=== PATIENT | female | born 1960 | race American Indian/Alaskan Native ===

== ENCOUNTER 2021-07-19 11:26 | Emergency (ER) | payer MEDICAID ==
[2021-07-19 14:07] LABS: Alanine Aminotransferase 10 units/L (7-56); Albumin 3.3 g/dL (3.9-5); Blood Urea Nitrogen 12 mg/dL (7-17); Calcium 9.8 mg/dL (8.4-10.2); Hemolysis Index 83
[2021-07-19 14:16] LABS: BUN/Creatinine Ratio 20
--- NOTE | 2021-07-19 14:53 | Emergency Department Report ---
ED Psych HPI - General Chief Complaint: Psych Stated Complaint: SI/SA Time Seen by Provider: 07/19/21 12:19 Source: patient, family, EMS Mode of arrival: Stretcher Limitations: No Limitations - History of Present Illness Initial Comments: took 5 trazadone pills many hours ago she was planning to harm herself , history of the same , still depressed admit o being suicidal MD Complaint: suicidal ideation -: Gradual, hour(s) Associated Psychiatric Symptoms: depression, suicidal ideation Quality: constant Improves With: none Worsens With: none If Self Harm: admits thoughts of - Related Data Home Medications Medication Instructions Recorded Confirmed Last Taken QUEtiapine [SEROquel] 100 mg PO DAILY 12/11/14 12/11/14 Unknown QUEtiapine [SEROquel] 400 mg PO QHS 12/11/14 12/11/14 Unknown Amitriptyline [Elavil] 100 mg PO QHS 12/12/14 12/12/14 Unknown lisinopriL [Lisinopril] 10 mg PO QDAY 12/12/14 12/12/14 Unknown Allergies Allergy/AdvReac Type Severity Reaction Status Date / Time No Known Allergies Allergy Unverified 12/11/14 21:02 ED Review of Systems ROS: Stated complaint: SI/SA Other details as noted in HPI Constitutional: denies: chills, fever Eyes: denies: eye pain, eye discharge, vision change ENT: denies: ear pain, throat pain Respiratory: denies: cough, shortness of breath, wheezing Cardiovascular: denies: chest pain, palpitations Endocrine: no symptoms reported Gastrointestinal: denies: abdominal pain, nausea, diarrhea Genitourinary: denies: urgency, dysuria, discharge Musculoskeletal: denies: back pain, joint swelling, arthralgia Skin: denies: rash, lesions Neurological: denies: headache, weakness, paresthesias Psychiatric: denies: anxiety, depression Hematological/Lymphatic: denies: easy bleeding, easy bruising ED Past Medical Hx - Past Medical History Hx Hypertension: Yes Hx GERD: Yes Hx Psychiatric Treatment: Yes ( hospitals in [place], [place] and [place]) Additional medical history: HIGH CHOLESTEROL, schizo, depression - Social History Substance Use Type: Alcohol - Medications Home Medications: Home Medications Medication Instructions Recorded Confirmed Last Taken Type QUEtiapine [SEROquel] 100 mg PO DAILY 12/11/14 12/11/14 Unknown History QUEtiapine [SEROquel] 400 mg PO QHS 12/11/14 12/11/14 Unknown History Amitriptyline [Elavil] 100 mg PO QHS 12/12/14 12/12/14 Unknown History lisinopriL [Lisinopril] 10 mg PO QDAY 12/12/14 12/12/14 Unknown History ED Physical Exam - General Limitations: Physical Limitation General appearance: alert, in no apparent distress, anxious - Head Head exam: Present: atraumatic, normocephalic - Eye Eye exam: Present: normal appearance - ENT ENT exam: Present: mucous membranes moist - Neck Neck exam: Present: normal inspection - Respiratory Respiratory exam: Present: normal lung sounds bilaterally. Absent: respiratory distress - Cardiovascular Cardiovascular Exam: Present: regular rate, normal rhythm. Absent: systolic murmur, diastolic murmur, rubs, gallop - GI/Abdominal GI/Abdominal exam: Present: soft, normal bowel sounds - Extremities Exam Extremities exam: Present: normal inspection - Back Exam Back exam: Present: normal inspection - Neurological Exam Neurological exam: Present: alert, oriented X3 - Psychiatric Psychiatric exam: Present: normal affect, normal mood, depressed, suicidal idea tion - Skin Skin exam: Present: warm, dry, intact, normal color. Absent: rash ED Course Vital Signs 07/19/21 07/19/21 07/19/21 12:17 14:44 14:45 Temperature 97.9 F Pulse Rate 55 L Respiratory 18 Rate Blood Pressure Blood Pressure 110/90 [Left] O2 Sat by Pulse 96 99 99 Oximetry 07/19/21 07/19/21 07/19/21 15:00 16:00 17:00 Temperature Pulse Rate Respiratory Rate Blood Pressure 131/60 125/67 67/34 Blood Pressure [Left] O2 Sat by Pulse 98 99 98 Oximetry 07/19/21 07/19/21 07/19/21 18:00 19:00 20:00 Temperature Pulse Rate Respiratory Rate Blood Pressure 141/75 139/69 136/85 Blood Pressure [Left] O2 Sat by Pulse 99 98 96 Oximetry 07/19/21 07/19/21 07/19/21 21:00 22:00 23:00 Temperature Pulse Rate Respiratory Rate Blood Pressure 143/81 147/81 168/71 Blood Pressure [Left] O2 Sat by Pulse 98 96 98 Oximetry 07/19/21 07/20/21 07/20/21 23:14 00:00 01:00 Temperature Pulse Rate Respiratory Rate Blood Pressure 168/71 155/83 149/80 Blood Pressure [Left] O2 Sat by Pulse 97 93 97 Oximetry 07/20/21 07/20/21 07/20/21 02:00 03:00 04:00 Temperature Pulse Rate Respiratory Rate Blood Pressure 161/80 144/83 146/74 Blood Pressure [Left] O2 Sat by Pulse 99 98 98 Oximetry 07/20/21 07/20/21 07/20/21 04:19 05:00 06:00 Temperature Pulse Rate 59 L Respiratory Rate Blood Pressure 152/78 145/80 Blood Pressure [Left] O2 Sat by Pulse 99 98 Oximetry 07/20/21 07/20/21 07/20/21 07:00 08:00 09:00 Temperature Pulse Rate Respiratory Rate Blood Pressure 154/80 152/76 154/79 Blood Pressure [Left] O2 Sat by Pulse 100 98 100 Oximetry 07/20/21 07/20/21 07/20/21 10:01 10:57 11:03 Temperature Pulse Rate 64 Respiratory Rate Blood Pressure 154/79 159/79 154/79 Blood Pressure [Left] O2 Sat by Pulse 99 96 Oximetry 07/20/21 07/20/21 07/20/21 12:01 12:06 12:22 Temperature Pulse Rate 58 L Respiratory 16 Rate Blood Pressure 162/126 Blood Pressure 163/65 [Left] O2 Sat by Pulse 100 96 98 Oximetry - Reevaluation(s) Reevaluation #1: 07/19/21 14:50 medically cleared for psych assessment ED Medical Decision Making - Lab Data Result diagrams: 07/19/21 15:09 07/19/21 15:08 Critical care attestation.: If time is entered above; I have spent that time in minutes in the direct care of this critically ill patient, excluding procedure time. ED Disposition Clinical Impression: Overdose, Suicide attempt Disposition: [facility] Is pt being admited?: No Does the pt Need Aspirin: No Condition: Stable Referrals: PRIMARY CARE, [Primary Care Provider] - 3-5 Days
[2021-07-19 15:22] LABS: Basophils # (Auto) 0.1 K/mm3 (0.0-0.1); Basophils % (Auto) 0.9 % (0.0-1.8); Eosinophils # (Auto) 0.2 K/mm3 (0.0-0.4); Eosinophils % (Auto) 2.5 % (0.0-4.3); Hematocrit 33.7 % (30.3-42.9); Hemoglobin 10.5 gm/dl (10.1-14.3); Lymphocytes # (Auto) 1.9 K/mm3 (1.2-5.4); Lymphocytes % (Auto) 28.4 % (13.4-35.0); Mean Corpuscular HGB Conc 31 % (30-34); Mean Corpuscular Volume 86 fl (79-97); Monocytes # (Auto) 0.7 K/mm3 (0.0-0.8); Monocytes % (Auto) 10.5 % (0.0-7.3); Platelet Count 244 K/mm3 (140-440); Red Blood Count 3.91 M/mm3 (3.65-5.03); Red Cell Distribution Width 15.6 % (13.2-15.2)
[2021-07-19 15:38] LABS: Alanine Aminotransferase 9 units/L (7-56); Albumin 3.7 g/dL (3.9-5); Blood Urea Nitrogen 12 mg/dL (7-17); Calcium 9.9 mg/dL (8.4-10.2); Hemolysis Index 4
[2021-07-19 15:46] LABS: BUN/Creatinine Ratio 24
[2021-07-19 17:18] LABS: Bacteria,Urine 1+ /HPF (Negative); Bilirubin,Urine NEG (Negative); Blood,Urine NEG (Negative); Color,Urine Yellow (Yellow); Mucus,Urine FEW /HPF; Protein,Urine <15 mg/dL mg/dL (Negative); Urobilinogen,Urine < 2.0 mg/dL (<2.0)
[2021-07-19 17:20] LABS: Amphetamine Screen,Urine Negative; Benzodiazepines Screen,Urine Negative; Cannabinoid Screen,Urine Negative; Cocaine Screen,Urine Negative; Methadone Screen,Urine Negative; Opiate Screen,Urine Negative
[2021-07-19] MEDS ORDERED: SUCRALFATE 1 GM/10 ML ORAL LIQD PO ONE (20:08)
[2021-07-19] MEDS ORDERED: PANTOPRAZOLE 40 MG TAB PO ONE (20:08)
--- NOTE | 2021-07-19 20:09 | Event Note ---
Date: 07/19/21 The patient was evaluated in the emergency department for symptoms described in the history of present illness. He/she was evaluated in the context of the global COVID-19 pandemic, which necessitated consideration that the patient might be at risk for infection with the virus that causes COVID-19. Institutional protocols and algorithms that pertain to the evaluation of patients at risk for COVID-19 are in a state of rapid change based on information released by regulatory bodies including the CDC and federal and state organizations. These policies and algorithms were followed during the patient's care in the emergency department. Please note that these policies, procedures and recommendations changed on a rapid basis. Nursing team has reported to my attention that the patient is complaining of chest pain. I went in to evaluate the patient. She states that she has left- sided chest wall pain which does not radiate anywhere. She denies vomiting, diaphoresis and exertional shortness of breath. Past medical history includes GERD without esophagitis, insomnia, type 2 diabetes, dysphagia, stroke, hypertension, schizophrenia, depression hyperlipidemia Physical exam remarkable for reproducible left-sided chest wall pain, and left- sided hemiplegia. After a short while, patient reports that her pain improved. Her EKG is interpreted at 20: 22, demonstrates sinus rhythm, bradycardia, rate 57 bpm. Normal axis, normal P wave axis, left ventricular hypertrophy. Minimal motion artifact. QTC 4 4 7 ms. Patient is not currently tachycardic, tachypneic or hypoxic, but given her underlying psychiatric disease, she is a poor and unreliable historian. She is also poorly mobile in a detention resident. Therefore, D-dimer is ordered, elevated, and therefore, CT scan of the chest will be obtained. We will also repeat EKG and troponin from 3 hours initially. Reassess. Presuming objective diagnostic testing unremarkable, we could consider this patient medically suitable for psychiatric disposition as originally intended. Hypomagnesemia reviewed and appreciated. Start magnesium sulfate orally and intravenously. CHEST 1 VIEW 07/19/2021 8:10 PM INDICATION / CLINICAL INFORMATION: acute chest pain. COMPARISON: None available. FINDINGS: SUPPORT DEVICES: None. HEART / MEDIASTINUM: No significant abnormality. LUNGS / PLEURA: No significant pulmonary or pleural abnormality. No pneumothorax. ADDITIONAL FINDINGS: No significant additional findings. IMPRESSION: 1. No acute findings. Signer Name: Addi Rodriguez MD Signed: 07/19/2021 7:34 PM Workstation Name: [id number] [email or web address] Vital Signs 07/19/21 07/19/21 07/19/21 12:17 14:44 14:45 Temperature 97.9 F Pulse Rate 55 L Respiratory 18 Rate Blood Pressure Blood Pressure 110/90 [Left] O2 Sat by Pulse 96 99 99 Oximetry 07/19/21 15:00 Temperature Pulse Rate Respiratory Rate Blood Pressure 131/60 Blood Pressure [Left] O2 Sat by Pulse 98 Oximetry Lab Results 07/19/21 07/19/21 07/19/21 Range/Units 13:28 13:28 13:28 WBC (4.5-11.0) K/mm3 RBC (3.65-5.03) M/mm3 Hgb (10.1-14.3) gm/dl Hct (30.3-42.9) % MCV (79-97) fl MCH (28-32) pg MCHC (30-34) % RDW (13.2-15.2) % Plt Count (140-440) K/mm3 Lymph % (Auto) (13.4-35.0) % [place] % (Auto) (0.0-7.3) % Eos % (Auto) (0.0-4.3) % Baso % (Auto) (0.0-1.8) % Lymph # (Auto) (1.2-5.4) K/mm3 [place] # (Auto) (0.0-0.8) K/mm3 Eos # (Auto) (0.0-0.4) K/mm3 Baso # (Auto) (0.0-0.1) K/mm3 Seg Neutrophils % (40.0-70.0) % Seg Neutrophils # (1.8-7.7) K/mm3 PT (12.2-14.9) Sec. INR (0.87-1.13) D-Dimer (0-234) ng/mlDDU Sodium 133 L (137-145) mmol/L Potassium 4.7 (3.6-5.0) mmol/L Chloride 99.0 (98-107) mmol/L Carbon Dioxide 19 L (22-30) mmol/L Anion Gap 20 mmol/L BUN 12 (7-17) mg/dL Creatinine 0.6 (0.6-1.2) mg/dL Estimated GFR > 60 ml/min BUN/Creatinine Ratio 20 % Glucose 287 H (65-100) mg/dL Calcium 9.8 (8.4-10.2) mg/dL Magnesium (1.7-2.3) mg/dL Total Bilirubin < 0.20 (0.1-1.2) mg/dL AST 16 (5-40) units/L ALT 10 (7-56) units/L Alkaline Phosphatase 93 (35-129) units/L Total Creatine Kinase (30-135) units/L Troponin T (0.00-0.029) ng/mL Total Protein 7.0 (6.3-8.2) g/dL Albumin 3.3 L (3.9-5) g/dL Albumin/Globulin Ratio 0.9 % Urine Color (Yellow) Urine Turbidity (Clear) Urine pH (5.0-7.0) Ur Specific [place] (1.003-1.030) Urine Protein (Negative) mg/dL Urine Glucose (UA) (Negative) mg/dL Urine Ketones (Negative) mg/dL Urine Blood (Negative) Urine Nitrite (Negative) Urine Bilirubin (Negative) Urine Urobilinogen (<2.0) mg/dL Ur Leukocyte Esterase (Negative) Urine WBC (Auto) (0.0-6.0) /HPF Urine RBC (Auto) (0.0-6.0) /HPF U Epithel Cells (Auto) (0-13.0) /HPF Urine Bacteria (Auto) (Negative) /HPF Urine Mucus /HPF Salicylates < 0.3 L (2.8-20.0) mg/dL Urine Opiates Screen Urine Methadone Screen Acetaminophen 5.0 L (10.0-30.0) ug/mL Ur Barbiturates Screen Ur Phencyclidine Scrn Ur Amphetamines Screen U Benzodiazepines Scrn Urine Cocaine Screen U Marijuana (THC) Screen Drugs of Abuse Note Plasma/Serum Alcohol (0-0.07) % 07/19/21 07/19/21 07/19/21 Range/Units 13:28 15:08 15:09 WBC 6.8 (4.5-11.0) K/mm3 RBC 3.91 (3.65-5.03) M/mm3 Hgb 10.5 (10.1-14.3) gm/dl Hct 33.7 (30.3-42.9) % MCV 86 (79-97) fl MCH 27 L (28-32) pg MCHC 31 (30-34) % RDW 15.6 H (13.2-15.2) % Plt Count 244 (140-440) K/mm3 Lymph % (Auto) 28.4 (13.4-35.0) % [place] % (Auto) 10.5 H (0.0-7.3) % Eos % (Auto) 2.5 (0.0-4.3) % Baso % (Auto) 0.9 (0.0-1.8) % Lymph # (Auto) 1.9 (1.2-5.4) K/mm3 [place] # (Auto) 0.7 (0.0-0.8) K/mm3 Eos # (Auto) 0.2 (0.0-0.4) K/mm3 Baso # (Auto) 0.1 (0.0-0.1) K/mm3 Seg Neutrophils % 57.7 (40.0-70.0) % Seg Neutrophils # 3.9 (1.8-7.7) K/mm3 PT (12.2-14.9) Sec. INR (0.87-1.13) D-Dimer (0-234) ng/mlDDU Sodium 136 L (137-145) mmol/L Potassium 4.4 (3.6-5.0) mmol/L Chloride 100.1 (98-107) mmol/L Carbon Dioxide 23 (22-30) mmol/L Anion Gap 17 mmol/L BUN 12 (7-17) mg/dL Creatinine 0.5 L (0.6-1.2) mg/dL Estimated GFR > 60 ml/min BUN/Creatinine Ratio 24 % Glucose 253 H (65-100) mg/dL Calcium 9.9 (8.4-10.2) mg/dL Magnesium (1.7-2.3) mg/dL Total Bilirubin < 0.20 (0.1-1.2) mg/dL AST 11 (5-40) units/L ALT 9 (7-56) units/L Alkaline Phosphatase 99 (35-129) units/L Total Creatine Kinase (30-135) units/L Troponin T (0.00-0.029) ng/mL Total Protein 7.6 (6.3-8.2) g/dL Albumin 3.7 L (3.9-5) g/dL Albumin/Globulin Ratio 0.9 % Urine Color (Yellow) Urine Turbidity (Clear) Urine pH (5.0-7.0) Ur Specific [place] (1.003-1.030) Urine Protein (Negative) mg/dL Urine Glucose (UA) (Negative) mg/dL Urine Ketones (Negative) mg/dL Urine Blood (Negative) Urine Nitrite (Negative) Urine Bilirubin (Negative) Urine Urobilinogen (<2.0) mg/dL Ur Leukocyte Esterase (Negative) Urine WBC (Auto) (0.0-6.0) /HPF Urine RBC (Auto) (0.0-6.0) /HPF U Epithel Cells (Auto) (0-13.0) /HPF Urine Bacteria (Auto) (Negative) /HPF Urine Mucus /HPF Salicylates (2.8-20.0) mg/dL Urine Opiates Screen Urine Methadone Screen Acetaminophen (10.0-30.0) ug/mL Ur Barbiturates Screen Ur Phencyclidine Scrn Ur Amphetamines Screen U Benzodiazepines Scrn Urine Cocaine Screen U Marijuana (THC) Screen Drugs of Abuse Note Plasma/Serum Alcohol < 0.01 (0-0.07) % 07/19/21 07/19/21 07/19/21 Range/Units 16:45 16:45 20:11 WBC (4.5-11.0) K/mm3 RBC (3.65-5.03) M/mm3 Hgb (10.1-14.3) gm/dl Hct (30.3-42.9) % MCV (79-97) fl MCH (28-32) pg MCHC (30-34) % RDW (13.2-15.2) % Plt Count (140-440) K/mm3 Lymph % (Auto) (13.4-35.0) % [place] % (Auto) (0.0-7.3) % Eos % (Auto) (0.0-4.3) % Baso % (Auto) (0.0-1.8) % Lymph # (Auto) (1.2-5.4) K/mm3 [place] # (Auto) (0.0-0.8) K/mm3 Eos # (Auto) (0.0-0.4) K/mm3 Baso # (Auto) (0.0-0.1) K/mm3 Seg Neutrophils % (40.0-70.0) % Seg Neutrophils # (1.8-7.7) K/mm3 PT 13.0 (12.2-14.9) Sec. INR 0.88 (0.87-1.13) D-Dimer 251.17 H (0-234) ng/mlDDU Sodium (137-145) mmol/L Potassium (3.6-5.0) mmol/L Chloride (98-107) mmol/L Carbon Dioxide (22-30) mmol/L Anion Gap mmol/L BUN (7-17) mg/dL Creatinine (0.6-1.2) mg/dL Estimated GFR ml/min BUN/Creatinine Ratio % Glucose (65-100) mg/dL Calcium (8.4-10.2) mg/dL Magnesium (1.7-2.3) mg/dL Total Bilirubin (0.1-1.2) mg/dL AST (5-40) units/L ALT (7-56) units/L Alkaline Phosphatase (35-129) units/L Total Creatine Kinase (30-135) units/L Troponin T (0.00-0.029) ng/mL Total Protein (6.3-8.2) g/dL Albumin (3.9-5) g/dL Albumin/Globulin Ratio % Urine Color Yellow (Yellow) Urine Turbidity Slightly-cloudy (Clear) Urine pH 5.0 (5.0-7.0) Ur Specific [place] 1.021 (1.003-1.030) Urine Protein <15 mg/dl (Negative) mg/dL Urine Glucose (UA) 50 (Negative) mg/dL Urine Ketones Neg (Negative) mg/dL Urine Blood Neg (Negative) Urine Nitrite Neg (Negative) Urine Bilirubin Neg (Negative) Urine Urobilinogen < 2.0 (<2.0) mg/dL Ur Leukocyte Esterase Neg (Negative) Urine WBC (Auto) 2.0 (0.0-6.0) /HPF Urine RBC (Auto) 9.0 (0.0-6.0) /HPF U Epithel Cells (Auto) 2.0 (0-13.0) /HPF Urine Bacteria (Auto) 1+ (Negative) /HPF Urine Mucus Few /HPF Salicylates (2.8-20.0) mg/dL Urine Opiates Screen Negative Urine Methadone Screen Negative Acetaminophen (10.0-30.0) ug/mL Ur Barbiturates Screen Negative Ur Phencyclidine Scrn Negative Ur Amphetamines Screen Negative U Benzodiazepines Scrn Negative Urine Cocaine Screen Negative U Marijuana (THC) Screen Negative Drugs of Abuse Note Disclamer Plasma/Serum Alcohol (0-0.07) % 07/19/21 Range/Units 20:11 WBC (4.5-11.0) K/mm3 RBC (3.65-5.03) M/mm3 Hgb (10.1-14.3) gm/dl Hct (30.3-42.9) % MCV (79-97) fl MCH (28-32) pg MCHC (30-34) % RDW (13.2-15.2) % Plt Count (140-440) K/mm3 Lymph % (Auto) (13.4-35.0) % [place] % (Auto) (0.0-7.3) % Eos % (Auto) (0.0-4.3) % Baso % (Auto) (0.0-1.8) % Lymph # (Auto) (1.2-5.4) K/mm3 [place] # (Auto) (0.0-0.8) K/mm3 Eos # (Auto) (0.0-0.4) K/mm3 Baso # (Auto) (0.0-0.1) K/mm3 Seg Neutrophils % (40.0-70.0) % Seg Neutrophils # (1.8-7.7) K/mm3 PT (12.2-14.9) Sec. INR (0.87-1.13) D-Dimer (0-234) ng/mlDDU Sodium (137-145) mmol/L Potassium (3.6-5.0) mmol/L Chloride (98-107) mmol/L Carbon Dioxide (22-30) mmol/L Anion Gap mmol/L BUN (7-17) mg/dL Creatinine (0.6-1.2) mg/dL Estimated GFR ml/min BUN/Creatinine Ratio % Glucose (65-100) mg/dL Calcium (8.4-10.2) mg/dL Magnesium 1.10 L (1.7-2.3) mg/dL Total Bilirubin (0.1-1.2) mg/dL AST (5-40) units/L ALT (7-56) units/L Alkaline Phosphatase (35-129) units/L Total Creatine Kinase 53 (30-135) units/L Troponin T < 0.010 (0.00-0.029) ng/mL Total Protein (6.3-8.2) g/dL Albumin (3.9-5) g/dL Albumin/Globulin Ratio % Urine Color (Yellow) Urine Turbidity (Clear) Urine pH (5.0-7.0) Ur Specific [place] (1.003-1.030) Urine Protein (Negative) mg/dL Urine Glucose (UA) (Negative) mg/dL Urine Ketones (Negative) mg/dL Urine Blood (Negative) Urine Nitrite (Negative) Urine Bilirubin (Negative) Urine Urobilinogen (<2.0) mg/dL Ur Leukocyte Esterase (Negative) Urine WBC (Auto) (0.0-6.0) /HPF Urine RBC (Auto) (0.0-6.0) /HPF U Epithel Cells (Auto) (0-13.0) /HPF Urine Bacteria (Auto) (Negative) /HPF Urine Mucus /HPF Salicylates (2.8-20.0) mg/dL Urine Opiates Screen Urine Methadone Screen Acetaminophen (10.0-30.0) ug/mL Ur Barbiturates Screen Ur Phencyclidine Scrn Ur Amphetamines Screen U Benzodiazepines Scrn Urine Cocaine Screen U Marijuana (THC) Screen Drugs of Abuse Note Plasma/Serum Alcohol (0-0.07) % CTA CHEST WITH CONTRAST INDICATION / CLINICAL INFORMATION: acute chest pain + d dimer. TECHNIQUE: Axial CT images were obtained through the chest after injection of IV contrast. 3 plane MIP and/or 3D reconstructions were produced. All CT scans at this location are performed using CT dose reduction for ALARA by means of automated exposure control. COMPARISON: None available. FINDINGS: VASCULAR FINDINGS: PULMONARY ARTERY: Pulmonary artery is normal in size. No filling defects are present compatible with pulmonary artery embolus.. THORACIC AORTA: No significant abnormality. CORONARY ARTERY CALCIFICATION: Mild. NONVASCULAR FINDINGS: LOWER NECK: Bilateral calcified thyroid nodules. No acute findings within the lower neck. HEART: No significant abnormality. MEDIASTINUM / MATT: No significant abnormality. ESOPHAGUS: No significant abnormality. LYMPH NODES: No adenopathy within the axilla, mediastinum, or matt. LUNGS: Minimal nodular airspace attenuation superior segment left lower lobe. Appearance is nonspecific and could reflect minimal infection/airways disease.. PLEURA: No pleural effusion. No pneumothorax. THORACIC SOFT TISSUES: No significant abnormality of the chest wall or upper thoracic musculature. BONES: No significant skeletal abnormalities. ADDITIONAL CHEST FINDINGS: None. UPPER ABDOMEN: Extensive pancreatic calcification compatible with prior pancreatitis. Additionally along the posterior margin of the pancreatic tail there is a thick walled fluid collection measuring 5.1 x 3.6 cm thought to reflect sequelae of prior pancreatitis and chronic pseudocyst. Main pancreatic duct is enlarged measuring 8 mm. Remote posterior left rib fractures. IMPRESSION: 1. No CT evidence for pulmonary embolism. 2. Minimal nodular airspace disease superior segment left lower lobe. Nonspecific may reflect infectious or inflammatory etiology. 3. Findings compatible with chronic pancreatitis. Thick walled fluid collection thought to reflect chronic pseudocyst. 3. Bilateral partially calcified thyroid nodules. Outpatient nonemergent ultrasound recommended for further characterization. Signer Name: Ion Owen II, MD Signed: 07/19/2021 10:12 PM Workstation Name: [id number] 07/19/2021; 23: 36 CT scan of the chest negative for pulmonary embolism. We will treat empirically for community-acquired pneumonia. Repeat EKG, repeat troponin pending. Patient resting comfortably in stretcher. Home medications reconciled. Care be transferred to the oncoming physician to follow-up on repeat troponin and repeat EKG. Should this be unremarkable, we would consider this patient medically suitable for psychiatric disposition. The patient may continue current chronic outpatient medications
--- NOTE | 2021-07-19 20:39 | XRay Report ---
CHEST 1 VIEW 07/19/2021 8:10 PM INDICATION / CLINICAL INFORMATION: acute chest pain. COMPARISON: None available. FINDINGS: SUPPORT DEVICES: None. HEART / MEDIASTINUM: No significant abnormality. LUNGS / PLEURA: No significant pulmonary or pleural abnormality. No pneumothorax. ADDITIONAL FINDINGS: No significant additional findings. IMPRESSION: 1. No acute findings. Signer Name: Addi Rodriguez MD Signed: 07/19/2021 8:34 PM Workstation Name: [id number]
[2021-07-19 21:06] LABS: INR 0.88 (0.87-1.13)
[2021-07-19] MEDS ORDERED: SODIUM CHLORIDE 0.9% 500 ML 500 ML IV ONE (21:17)
[2021-07-19] MEDS ORDERED: MAGNESIUM SULFATE 2 GM/50 ML BAG IV ONE (21:17)
[2021-07-19] MEDS ORDERED: ACETAMINOPHEN 325 MG TAB PO PRN (22:15)
--- NOTE | 2021-07-19 23:17 | Cat Scan Report ---
CTA CHEST WITH CONTRAST INDICATION / CLINICAL INFORMATION: acute chest pain + d dimer. TECHNIQUE: Axial CT images were obtained through the chest after injection of IV contrast. 3 plane CO P and/or 3D reconstructions were produced. All CT scans at this location are performed using CT dose reduction for ALARA by means of automated exposure control. COMPARISON: None available. FINDINGS: VASCULAR FINDINGS: PULMONARY ARTERY: Pulmonary artery is normal in size. No filling defects are present compatible with pulmonary artery embolus.. THORACIC AORTA: No significant abnormality. CORONARY ARTERY CALCIFICATION: Mild. NONVASCULAR FINDINGS: LOWER NECK: Bilateral calcified thyroid nodules. No acute findings within the lower neck. HEART: No significant abnormality. MEDIASTINUM / MATT: No significant abnormality. ESOPHAGUS: No significant abnormality. LYMPH NODES: No adenopathy within the axilla, mediastinum, or matt. LUNGS: Minimal nodular airspace attenuation superior segment left lower lobe. Appearance is nonspecif ic and could reflect minimal infection/airways disease.. PLEURA: No pleural effusion. No pneumothorax. THORACIC SOFT TISSUES: No significant abnormality of the chest wall or upper thoracic musculature. BONES: No significant skeletal abnormalities. ADDITIONAL CHEST FINDINGS: None. UPPER ABDOMEN: Extensive pancreatic calcification compatible with prior pancreatitis. Additionally al hyun the posterior margin of the pancreatic tail there is a thick walled fluid collection measuring 5. 1 x 3.6 cm thought to reflect sequelae of prior pancreatitis and chronic pseudocyst. Main pancreatic duct is enlarged measuring 8 mm. Remote posterior left rib fractures. IMPRESSION: 1. No CT evidence for pulmonary embolism. 2. Minimal nodular airspace disease superior segment left lower lobe. Nonspecific may reflect infecti ous or inflammatory etiology. 3. Findings compatible with chronic pancreatitis. Thick walled fluid collection thought to reflect ch ronic pseudocyst. 3. Bilateral partially calcified thyroid nodules. Outpatient nonemergent ultrasound recommended for f sean characterization. Signer Name: Ion Owen II, MD Signed: 07/19/2021 11:12 PM Workstation Name: [email or web address]
[2021-07-19] MEDS ORDERED: AZITHROMYCIN 250 MG TAB PO ONE (23:21)
[2021-07-19] MEDS: MAGNESIUM OXIDE 400 MG TAB PO SCH (23:54)
--- NOTE | 2021-07-20 00:50 | Emergency Department Report ---
Blank Doc - Documentation Documentation: Repeat troponin was normal. I did review the labs. Patient had hypomagnesemia but this was addressed with a 2 g dose. At this time, patient is medically cleared for psychiatric evaluation and disposition. Patient has ruled out for ACS and can follow-up as an outpatient.
[2021-07-20] MEDS ORDERED: SODIUM CHLORIDE 0.9% 500 ML 500 ML ONE (00:58)
[2021-07-20] MEDS ORDERED: PANTOPRAZOLE 40 MG TAB PO ONE (02:00)
[2021-07-20] MEDS ORDERED: MAGNESIUM SULFATE 2 GM/50 ML BAG IV ONE (02:00)
[2021-07-20] MEDS ORDERED: ASPIRIN 325 MG TAB PO SCH (10:00)
[2021-07-20] MEDS ORDERED: LIPASE 12,000/PROTEASE 38,000/AMYLASE 60,000 (UNITS) DR CAP PO SCH (10:00)
--- NOTE | 2021-07-20 10:04 | Electrocardiograph Report ---
[facility] Test Date: 2021-07-19 Test Time: 20:22:49 Pat Name: PARVIZ VASQUEZ Department: Room: Gender: F Pnp: CANDY : 1960 Requested By: SCOTT CHAMBERLAIN Order Number: [id number] Reading MD: Hugo Aguila Measurements Intervals [place] Rate: 57 P: 85 IA: 152 QRS: 22 QRSD: 91 T: 32 QT: 460 QTc: 447 Interpretive Statements Sinus rhythm Consider left ventricular hypertrophy No previous ECG available for comparison Electronically Signed On 07-20-2021 10:04:34 EST by Hugo Aguila
--- NOTE | 2021-07-20 10:37 | Consultation ---
History of Present Illness - Reason for Consult Consult date: 07/20/21 Reason for consult: OD - History of Present Psychiatric Illness The patient was seen today. She is a 61y/o female who took an overdose in an attempt to harm herself. During my evaluation of the patient she is calm and cooperative. She is pleasant. She says she has a lot of stuff going on, and is depressed. The patient says "my sister put me in a retirement and I don't like it." She says "I tried to kill myself." The patient says she doesn't like the retirement and can't get help there. The patient says she has a history of bipolar. She says she takes Seroquel 150mg and trazodone. The patient says she hears voices. She says "she ain't messing with me today. Her name is side kick." She is referring to the voice. The patient says she used to do "crack in the past." She says "but I left all of that alone." PAST PSYCHIATRIC HISTORY: Diagnoses: Bipolar Suicide attempts or Self-harm behavior: Yes Prior psychiatric hospitalizations: Yes Substance Abuse history: Crack in past Previous psychiatric medications tried: seroquel, trazodone Outpatient treatment: Yes PAST MEDICAL HISTORY: None reported Family Psychiatric History None reported SOCIAL HISTORY Marital Status: Single Living Arrangements: detention Employment Status: Disabled Access to guns/weapons: Denied Education: History of Abuse: Denies Legal History: Denies ROS: Constitutional: Negative for weight loss ENT: Negative for stridor Respiratory: Negative for cough or hemoptysis All other systems reviewed and are negative MENTAL STATUS EXAMINATION General Appearance and Behavior: Age appropriate, fair hygiene, wearing appropriate clothes, good eye contact, cooperative polite with questioning. Cooperation: Participating and Guarded Psychomotor Behavior: Psychomotor normal Mood: Depressed Affect and affective range: congruent with stated mood Thought Process: circumstantial Thought Content: SI, hallucination Speech: Normal volume, Regular rate and rhythm Intellectual Functioning: Average Suicidal Ideation: Yes Homicidal Ideation: Denies HI Hallucinations: Auditory Impulse Control: Limited Insight and Judgment: Limited Memory: Limited Attention: Normal Orientation: Alert, oriented, Assessment and Plan (1) Bipolar disorder Current Visit: Yes Status: Acute Treatment Plan 1013 Seroquel 100mg po BID Protective factors include access to care, no history of suicide attempts, and disability income. MEDICATIONS: Risks, benefits and alternatives of medications discussed with the patient, questions answered and consent obtained from patient. PSYCHOTHERAPY: Supportive psychotherapy provided MEDICAL: Per primary team DELIRIUM PRECAUTIONS: Please re-orient patient frequently, keep lights on during the day, and minimize benzodiazepines and opiates as these medications could worsen patient's confusion. 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 Please contact with any questions and/or concerns. Case staffed with Dr. Edwards Medications and Allergies Allergies Allergy/AdvReac Type Severity Reaction Status Date / Time No Known Allergies Allergy Unverified 12/11/14 21:02 Home Medications Medication Instructions Recorded Confirmed Last Taken Type QUEtiapine [SEROquel] 100 mg PO DAILY 12/11/14 12/11/14 Unknown History QUEtiapine [SEROquel] 400 mg PO QHS 12/11/14 12/11/14 Unknown History Amitriptyline [Elavil] 100 mg PO QHS 12/12/14 12/12/14 Unknown History lisinopriL [Lisinopril] 10 mg PO QDAY 12/12/14 12/12/14 Unknown History Active Meds: Active Medications Acetaminophen (Acetaminophen 325 Mg Tab) 650 mg PO Q6HR PRN PRN Reason: Pain , Severe (7-10) Amlodipine Besylate (Amlodipine 5 Mg Tab) 5 mg PO QDAY [facility] Amoxicillin (Amoxicillin 500 Mg Cap) 1,000 mg PO TID [facility]; Protocol Stop: 07/26/21 20:01 Lipase/Protease/Amylase (Lipase 10,500/Protease 25,000/Amylase 43,750 (Units) Dr Craig) 3 each PO AC [place] Aspirin (Aspirin 325 Mg Tab) 81 mg PO QDAY [facility] Atorvastatin Calcium (Atorvastatin 40 Mg Tab) 80 mg PO QHS [facility] Azithromycin (Azithromycin 250 Mg Tab) 250 mg PO QDAY [facility]; Protocol Stop: 07/23/21 10:01 Chlorhexidine Gluconate (Chlorhexidine Mouthwash 473ml) 15 ml MM BID [facility] Famotidine (Famotidine 20 Mg Tab) 20 mg PO QAM [facility] Folic Acid (Folic Acid 1 Mg Tab) 1 mg PO QDAY [facility] Levetiracetam (Levetiracetam 500 Mg Tab) 500 mg PO BID [facility] Magnesium Oxide (Magnesium Oxide 400 Mg Tab) 400 mg PO QDAY [facility] Last Admin: 07/19/21 23:54 Dose: Not Given Metformin HCl (Metformin 500 Mg Tab) 1,000 mg PO QAM [facility] Prazosin HCl (Prazosin 1 Mg Cap) 1 mg PO QHS [facility] Thiamine HCl (Thiamine 100 Mg Tab) 100 mg PO QDAY [facility] Valproic Acid (Valproic Acid 250 Mg Cap) 500 mg PO QAM [facility] Mental Status Exam - Vital signs Last Vital Signs Temp 97.9 F 07/19/21 12:17 Pulse 59 L 07/20/21 04:19 Resp 18 07/19/21 12:17 BP 146/74 07/20/21 04:00 Pulse Ox 98 07/20/21 04:00 Results Result Diagrams: 07/19/21 15:09 07/19/21 15:08 Abnormal lab results 07/19/21 07/19/21 07/19/21 Range/Units 13:28 13:28 13:28 MCH (28-32) pg RDW (13.2-15.2) % [place] % (Auto) (0.0-7.3) % D-Dimer (0-234) ng/mlDDU Sodium 133 L (137-145) mmol/L Carbon Dioxide 19 L (22-30) mmol/L Creatinine (0.6-1.2) mg/dL Glucose 287 H (65-100) mg/dL Magnesium (1.7-2.3) mg/dL Albumin 3.3 L (3.9-5) g/dL Salicylates < 0.3 L (2.8-20.0) mg/dL Acetaminophen 5.0 L (10.0-30.0) ug/mL 07/19/21 07/19/21 07/19/21 Range/Units 15:08 15:09 20:11 MCH 27 L (28-32) pg RDW 15.6 H (13.2-15.2) % [place] % (Auto) 10.5 H (0.0-7.3) % D-Dimer 251.17 H (0-234) ng/mlDDU Sodium 136 L (137-145) mmol/L Carbon Dioxide (22-30) mmol/L Creatinine 0.5 L (0.6-1.2) mg/dL Glucose 253 H (65-100) mg/dL Magnesium (1.7-2.3) mg/dL Albumin 3.7 L (3.9-5) g/dL Salicylates (2.8-20.0) mg/dL Acetaminophen (10.0-30.0) ug/mL 07/19/21 Range/Units 20:11 MCH (28-32) pg RDW (13.2-15.2) % [place] % (Auto) (0.0-7.3) % D-Dimer (0-234) ng/mlDDU Sodium (137-145) mmol/L Carbon Dioxide (22-30) mmol/L Creatinine (0.6-1.2) mg/dL Glucose (65-100) mg/dL Magnesium 1.10 L (1.7-2.3) mg/dL Albumin (3.9-5) g/dL Salicylates (2.8-20.0) mg/dL Acetaminophen (10.0-30.0) ug/mL All other labs normal.
[2021-07-20] MEDS: metFORMIN 500 MG TAB PO SCH (10:53)
[2021-07-20] MEDS ORDERED: ASPIRIN 81 MG TAB CHEW ONE (10:55)
[2021-07-20] MEDS: levETIRAcetam 500 MG TAB PO SCH ×2 (10:56→22:46)
[2021-07-20] MEDS: VALPROIC ACID 250 MG CAP PO SCH (10:56)
[2021-07-20] MEDS: amLODIPine 5 MG TAB PO SCH (10:57)
[2021-07-20] MEDS: FAMOTIDINE 20 MG TAB PO SCH (10:58)
[2021-07-20] MEDS: FOLIC ACID 1 MG TAB PO SCH (10:58)
[2021-07-20] MEDS: THIAMINE 100 MG TAB PO SCH (10:58)
[2021-07-20] MEDS: MAGNESIUM OXIDE 400 MG TAB PO SCH (10:59)
[2021-07-20] MEDS: AZITHROMYCIN 250 MG TAB PO SCH (11:31)
[2021-07-20] MEDS: AMOXICILLIN 500 MG CAP PO SCH ×3 (11:31→22:13)
[2021-07-20] MEDS: ASPIRIN EC 81 MG TAB PO SCH (11:32)
[2021-07-20] MEDS: QUEtiapine 100 MG TAB PO SCH ×2 (11:32→22:46)
--- NOTE | 2021-07-20 11:39 | Event Note ---
Date: 07/20/21 medically cleared vss , assessed by psych , recommend inpatient psych
[2021-07-20] MEDS: LIPASE 10,500/PROTEASE 25,000/AMYLASE 43,750 (UNITS) DR CAP PO SCH ×3 (11:59→17:26)
[2021-07-20] MEDS: CHLORHEXIDINE MOUTHWASH 473ML MM SCH ×2 (12:00→22:46)
[2021-07-20] MEDS: MULTIVITAMIN / MINERAL ORAL LIQUID 15 ML PO SCH (12:00)
[2021-07-20] MEDS ORDERED: PRAZOSIN 1 MG CAP PO SCH (22:00)
[2021-07-21] MEDS: LIPASE 10,500/PROTEASE 25,000/AMYLASE 43,750 (UNITS) DR CAP PO SCH ×2 (08:45→12:00)
[2021-07-21] MEDS: AMOXICILLIN 500 MG CAP PO SCH ×2 (09:09→15:38)
[2021-07-21] MEDS: amLODIPine 5 MG TAB PO SCH (10:30)
[2021-07-21] MEDS: VALPROIC ACID 250 MG CAP PO SCH (10:30)
[2021-07-21] MEDS: AZITHROMYCIN 250 MG TAB PO SCH (10:30)
[2021-07-21] MEDS: ASPIRIN EC 81 MG TAB PO SCH (10:31)
[2021-07-21] MEDS: THIAMINE 100 MG TAB PO SCH (10:31)
[2021-07-21] MEDS: CHLORHEXIDINE MOUTHWASH 473ML MM SCH (10:31)
[2021-07-21] MEDS: MULTIVITAMIN / MINERAL ORAL LIQUID 15 ML PO SCH (10:31)
[2021-07-21] MEDS: FOLIC ACID 1 MG TAB PO SCH (10:31)
[2021-07-21] MEDS: levETIRAcetam 500 MG TAB PO SCH (10:31)
[2021-07-21] MEDS: MAGNESIUM OXIDE 400 MG TAB PO SCH (10:31)
[2021-07-21] MEDS: QUEtiapine 100 MG TAB PO SCH (10:31)
[2021-07-21] MEDS: metFORMIN 500 MG TAB PO SCH (10:31)
[2021-07-21] MEDS: FAMOTIDINE 20 MG TAB PO SCH (10:31)
--- NOTE | 2021-07-21 12:35 | Progress Note ---
Subjective - Reason for Consult Consult date: 07/21/21 Reason for consult: Suicidal attempt - Chief Complaint Chief complaint: The patient was seen today. She still endorses suicidal thoughts. She says "I just can't go back there." The patient says it makes her depressed. She denies hallucinations of any kind. She asked me to call her sister. I spoke with the patient's sister and informed her of what was going on with the patient, and the plan of care. She was appreciative of the call. ROS: Constitutional: Negative for weight loss ENT: Negative for stridor Respiratory: Negative for cough or hemoptysis All other systems reviewed and are negative MENTAL STATUS EXAMINATION General Appearance and Behavior: Age appropriate, fair hygiene, wearing appropriate clothes, good eye contact, cooperative polite with questioning. Cooperation: Participating and Guarded Psychomotor Behavior: Psychomotor normal Mood: Depressed Affect and affective range: congruent with stated mood Thought Process: circumstantial Thought Content: SI, hallucination Speech: Normal volume, Regular rate and rhythm Intellectual Functioning: Average Suicidal Ideation: Yes Homicidal Ideation: Denies HI Hallucinations: Auditory Impulse Control: Limited Insight and Judgment: Limited Memory: Limited Attention: Normal Orientation: Alert, oriented, Assessment and Plan (1) Bipolar disorder Current Visit: Yes Status: Acute Treatment Plan 1013 Seroquel 100mg po BID Protective factors include access to care, no history of suicide attempts, and disability income. Risks, benefits and alternatives of medications discussed with the patient, questions answered and consent obtained from patient. PSYCHOTHERAPY: Supportive psychotherapy provided MEDICAL: Per primary team DELIRIUM PRECAUTIONS: Please re-orient patient frequently, keep lights on during the day, and minimize benzodiazepines and opiates as these medications could worsen patient's confusion. 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 Please contact with any questions and/or concerns. Case staffed with Dr. Edwards Mental Status Exam - Vital signs Last Vital Signs Temp 98.1 F 07/21/21 09:32 Pulse 64 07/21/21 10:30 Resp 14 07/20/21 22:07 BP 120/66 07/21/21 10:30 Pulse Ox 100 07/21/21 09:01
[2021-07-21 16:57] VITALS: BP 119/73
== END 2021-07-21 17:36 ==
LOC: ED 11:26
DX: T43.212A Poisoning by selective serotonin and norepinephrine reuptake inhibitors, intentional self-harm, initial encounter (principal); T14.91XA Suicide attempt, initial encounter; I10 Essential (primary) hypertension; K21.9 Gastro-esophageal reflux disease without esophagitis; Z20.822 Contact with and (suspected) exposure to COVID-19; Y92.89 Other specified places as the place of occurrence of the external cause
CPT/HCPCS: 36415; 71045; 71275; 80053; 80307; 81001; 82550; 83735; 84484; 85025; 85379; 85610; 93005; 96365; 96366; 99285; J3475; J7040; Q9967; U0003; 80320; 96361; G0480